=== PATIENT | female | born 1995 | race Caucasian/White ===

== ENCOUNTER 2020-07-05 19:12 | Emergency (ER) | payer OTHER ==
[~2020-07-05] VITALS: Ht 160 cm; Wt 70.8 kg
[~2020-07-05 19:12] MED LIST: BACTRIM DS 8001 TA1 PO; BIRTH CONTROL1 EAC1 PO; DONNATAL1 TAB PO; KEFLEX500 M1 PO; PRENA1 CHEW1 CT1 PO; PYRIDIUM200 MG PO
[2020-07-05] MEDS ORDERED: CLINDAMYCIN HC300 MG PO (19:50)
[2020-07-05] MEDS ORDERED: ANAPROX DS550 MG PO (19:50)
== END 2020-07-05 20:01 | disposition home or self-care (01) ==
LOC: ED 19:12
DX: K08.89 Other specified disorders of teeth and supporting structures (principal); Z88.0 Allergy status to penicillin; Z88.8 Allergy status to other drugs, medicaments and biological substances; Z79.899 Other long term (current) drug therapy

== ENCOUNTER → 2021-05-12 | Outpatient (CLI) | payer OTHER ==
[~2021-05-12] MED LIST changes: +ANAPROX DS550 MG PO; +CLINDAMYCIN HC300 MG PO
== END | disposition home or self-care (01) ==
LOC: US 16:00
PROVIDERS: ATTEND Nurse Practitioner
DX: N92.6 Irregular menstruation, unspecified (principal); N94.10 Unspecified dyspareunia; R10.2 Pelvic and perineal pain

== ENCOUNTER 2021-07-10 13:29 | Emergency (ER) | payer OTHER ==
[~2021-07-10] VITALS: Wt 68.0 kg
== END 2021-07-10 17:32 | disposition home or self-care (01) ==
LOC: ED 13:29
DX: B34.9 Viral infection, unspecified (principal); Z20.822 Contact with and (suspected) exposure to COVID-19; Z88.0 Allergy status to penicillin; Z88.4 Allergy status to anesthetic agent; Z79.899 Other long term (current) drug therapy

== ENCOUNTER 2022-03-01 21:51 | Emergency (ER) | payer OTHER ==
[~2022-03-01] VITALS: Ht 167.6 cm; Wt 60.8 kg
[2022-03-01] MEDS ORDERED: NYST SUSP PO (23:26)
[2022-03-01] MEDS ORDERED: CLINDAMYCIN HC300 MG PO (23:26)
== END 2022-03-01 23:35 | disposition home or self-care (01) ==
LOC: ED 21:51
DX: J02.9 Acute pharyngitis, unspecified (principal); Z88.0 Allergy status to penicillin; Z88.4 Allergy status to anesthetic agent; Z79.899 Other long term (current) drug therapy; Z90.49 Acquired absence of other specified parts of digestive tract

== ENCOUNTER 2022-07-04 17:44 | Emergency (ER) | payer OTHER ==
[~2022-07-04] VITALS: Wt 71.7 kg
[~2022-07-04 17:44] MED LIST changes: +NYST SUSP PO
== END 2022-07-04 19:43 | disposition left against medical advice (07) ==
LOC: ED 17:44
DX: R51.9 Headache, unspecified (principal); Z79.899 Other long term (current) drug therapy; Z88.0 Allergy status to penicillin; Z88.4 Allergy status to anesthetic agent; Z53.21 Procedure and treatment not carried out due to patient leaving prior to being seen by health care provider

== ENCOUNTER 2024-07-29 09:08 | Emergency (ER) | payer OTHER ==
[~2024-07-29 09:08] MED LIST changes: +CEPHALEXIN500 M1 PO
[2024-07-29] MEDS ORDERED: Acetaminophen/Oxycodone 5 MG/325 MG TABLET PO ONE (10:10)
[2024-07-29 10:21] LABS: BASO % 0.3 % (0.0-1.0); EOS % 0.6 % (1.0-4.0); HEMATOCRIT 45.2 % (37.0-47.0); LYMPH # 1.2 10*3/uL (1.3-4.4); LYMPH % 17.7 % (27.0-41.0); MEAN CELL VOLUME 89.3 fl (81.0-99.0); MEAN CORPUSCULAR HGB CONC 33.6 g/dl (33.0-37.0); MEAN PLATELET VOLUME 9.3 fl (9.6-12.3); MONO # 0.5 10*3/uL (0.1-1.0); MONO % 7.2 % (3.0-9.0); NEUT % 73.9 % (47.0-73.0); PLATELET COUNT AUTOMATED 270 10*3/uL (130-400); RED BLOOD COUNT 5.06 10*6/uL (4.10-5.10); RED CELL DISTRI WIDTH 13.2 % (0-14.5); WHITE BLOOD COUNT 6.7 10*3/uL (4.8-10.8)
[2024-07-29 10:40] LABS: BILIRUBIN Negative (Negative); BLOOD Negative (Negative); CLARITY Cloudy (Clear); COLOR Yellow (Yellow); GLUCOSE Negative (Negative); KETONE Negative (Negative); LEUKO ESTERASE Negative (Negative); NITRITE Negative (Negative); PH 6.5 (4.5-8.0)
[2024-07-29 10:50] LABS: BUN 10 mg/dl (9-23); CHLORIDE 107 mmol/L (98-107)
[2024-07-29 10:59] LABS: BACTERIA TRACE
[2024-07-29] MEDS ORDERED: MELOXICAM15 MG PO (11:52)
== END 2024-07-29 11:57 | disposition home or self-care (01) ==
LOC: ED 09:08
PROVIDERS: Internal Medicine
DX: M54.50 Low back pain, unspecified (principal); Z88.0 Allergy status to penicillin; Z88.8 Allergy status to other drugs, medicaments and biological substances; Z90.49 Acquired absence of other specified parts of digestive tract

== ENCOUNTER → 2024-09-05 | Outpatient (CLI) | payer OTHER ==
[~2024-09-05] MED LIST changes: +MELOXICAM15 MG PO
== END | disposition home or self-care (01) ==
LOC: US 00:41
DX: N30.01 Acute cystitis with hematuria (principal); N23 Unspecified renal colic; R30.0 Dysuria

== ENCOUNTER 2025-10-20 10:28 | Emergency (ER) | payer OTHER ==
[~2025-10-20] VITALS: Ht 165.1 cm; Wt 5443.1 kg
[2025-10-20 11:13] LABS: BILIRUBIN Negative (Negative); BLOOD 2+ (Negative); CLARITY Cloudy (Clear); COLOR Yellow (Yellow); KETONE Trace (Negative); LEUKO ESTERASE 2+ (Negative); NITRITE Negative (Negative); PH 6.5 (4.5-8.0); SPECIFIC GRAVITY 1.020 (1.001-1.030); UROBILINOGEN 1.0 E.U./dl (0.0-1.0)
[2025-10-20 11:35] LABS: BASO # 0.0 10*3/uL (0.0-0.1); BASO % 0.3 % (0.0-1.0); EOS # 0.0 10*3/uL (0.0-0.4); EOS % 0.5 % (1.0-4.0); MEAN CELL VOLUME 93.6 fl (81.0-99.0); MEAN CORPUSCULAR HGB 31.2 pg (27.0-31.0); MEAN PLATELET VOLUME 9.0 fl (9.6-12.3); MONO # 0.5 10*3/uL (0.1-1.0); MONO % 7.4 % (3.0-9.0); NEUT # 4.3 10*3/uL (2.3-7.9); NEUT % 64.6 % (47.0-73.0); NUCLEATED RED BLOOD CELL 0.0 % (0.0-0.0); NUCLEATED RED BLOOD CELL 0.0 10*3/uL (0.0-0.0); PLATELET COUNT AUTOMATED 248 10*3/uL (130-400); RED CELL DISTRI WIDTH 12.3 % (0-14.5)
[2025-10-20 11:39] LABS: BACTERIA 3+; EPITHELIAL CELLS 21-30; MUCOUS 1+; RBC 31-40 rbc/hpf (0-2); WBC 51-100 wbc/hpf (0-5)
[2025-10-20 11:50] LABS: BUN 11 mg/dl (9-23)
[2025-10-20] MEDS ORDERED: PYRIDIUM100 MG PO (12:04)
== END 2025-10-20 12:10 | disposition home or self-care (01) ==
LOC: ED 10:28
PROVIDERS: Emergency Medicine; Nurse Practitioner Family
DX: R30.0 Dysuria (principal); N39.0 Urinary tract infection, site not specified; Z87.440 Personal history of urinary (tract) infections; Z88.0 Allergy status to penicillin